=== PATIENT | female | born 1985 | race Caucasian/White ===

== ENCOUNTER → 2017-10-18 07:31 | Outpatient (CLI) | payer MEDICARE, OTHER, SELFPAY ==
[2017-10-18 09:25] LABS: Basophils % 0.5 % (0.1-2.0); Eosinophils # 0.2 K/mm3 (0.0-0.4); Eosinophils % 2.3 % (0.1-12.0); Hematocrit 35.3 % (37.0-47.0); Hemoglobin 10.8 g/dL (12.2-16.2); Lymphocytes # 1.8 K/mm3 (0.7-4.5); Lymphocytes % 19.3 K/mm3 (10-50); Mean Corpuscular HGB Conc 30.6 g/dL (31.8-35.4); Mean Corpuscular Hemoglobin 30.2 pg (27.0-31.2); Mean Corpuscular Volume 98.9 fl (81-99); Mean Platelet Volume 7.5 fl (7.4-10.4); Monocytes # 0.5 K/mm3 (0.1-1.0); Neutrophils # 6.8 K/mm3 (1.8-7.8); Neutrophils % 72.9 % (37.0-80.0); Platelet Count 327 K/mm3 (142-424); Red Blood Count 3.57 M/mm3 (4.20-5.40); Red Cell Distribution Width 13.7 % (11.5-17.5); White Blood Count 9.3 K/mm3 (4.8-10.8)
[2017-10-18 10:30] LABS: Alanine Aminotransferase 28 U/L (12-78); Albumin Level 4.1 gm/dL (3.4-5.0); Albumin/Globulin Ratio 1.3 (1.1-1.8); Alkaline Phosphatase 62 U/L (46-116); Anion Gap 14.1 mEq/L (5-15); Aspartate Amino Transferase 19 U/L (15-37); Bilirubin,Total 0.3 mg/dL (0.2-1.0); Blood Urea Nitrogen 19 mg/dL (7-18); Calcium 9.2 mg/dL (8.5-10.1); Carbon Dioxide 25 mmol/L (21.0-32.0); Chloride 103 mmol/L (98-107); Cholesterol 161 mg/dL (140-200); Creatinine,Serum 1.08 mg/dL (0.55-1.02); Estimated Glomerular Filt Rate 58 ml/min (>60); GFR (African American) > 60 ML/MIN (>60); Globulin 3.1 gm/dl (1.3-3.2); Glucose 85 mg/dL (74-106); Phosphorous 3.4 mg/dL (2.4-4.9); Potassium 4.1 mmoL/L (3.5-5.1); Sodium 138 mmol/L (136-145); Total Protein,Serum 7.2 gm/dL (6.4-8.2); Triglycerides 104 mg/dL (30-200)
[2017-11-19 13:41] LABS: Miscellaneous Test SEE SEP REPORT
[2017-11-19 19:26] LABS: Parathyroid Hormone Intact 72 pg/mL (15-65); Vitamin D 25 Hydroxy 43.5 ng/mL (30.0-100.0)
== END ==
PROVIDERS: PCP Surgery; Visit Provider Surgery
DX: Z94.0 Kidney transplant status (principal); Z79.891 Long term (current) use of opiate analgesic; Z00.00 Encounter for general adult medical examination without abnormal findings
CPT/HCPCS: 36415; 80053; 82465; 82652; 83735; 83970; 84100; 84478; 85025

== ENCOUNTER → 2018-02-02 06:56 | Outpatient (CLI) | payer MEDICARE, OTHER, SELFPAY ==
[2018-02-02 08:37] LABS: Creatinine,Urine Random 136 mg/dL (20-320); Total Protein,Urine Random 67.9 mg/dL (0.0-11.9)
[2018-02-02 09:04] LABS: Basophils % 0.5 % (0.1-2.0); Eosinophils # 0.1 K/mm3 (0.0-0.4); Eosinophils % 1.9 % (0.1-12.0); Hematocrit 33.7 % (37.0-47.0); Hemoglobin 10.6 g/dL (12.2-16.2); Lymphocytes # 1.5 K/mm3 (0.7-4.5); Mean Corpuscular HGB Conc 31.5 g/dL (31.8-35.4); Mean Corpuscular Hemoglobin 30.6 pg (27.0-31.2); Mean Corpuscular Volume 97.2 fl (81-99); Mean Platelet Volume 8.2 fl (7.4-10.4); Monocytes # 0.3 K/mm3 (0.1-1.0); Monocytes % 5.3 % (1.7-9.3); Neutrophils # 4.4 K/mm3 (1.8-7.8); Neutrophils % 69.3 % (37.0-80.0); Platelet Count 269 K/mm3 (142-424); Red Blood Count 3.47 M/mm3 (4.20-5.40); White Blood Count 6.4 K/mm3 (4.8-10.8)
[2018-02-02 09:19] LABS: Alanine Aminotransferase 22 U/L (12-78); Albumin Level 3.8 gm/dL (3.4-5.0); Albumin/Globulin Ratio 1.2 (1.1-1.8); Alkaline Phosphatase 58 U/L (46-116); Anion Gap 13.2 mEq/L (5-15); Aspartate Amino Transferase 19 U/L (15-37); Bilirubin,Total 0.3 mg/dL (0.2-1.0); Blood Urea Nitrogen 15 mg/dL (7-18); Calcium 8.9 mg/dL (8.5-10.1); Carbon Dioxide 26 mmol/L (21.0-32.0); Chloride 105 mmol/L (98-107); Cholesterol 143 mg/dL (140-200); Creatinine,Serum 0.92 mg/dL (0.55-1.02); Estimated Glomerular Filt Rate 70 ml/min (>60); GFR (African American) 85 ML/MIN (>60); Globulin 3.3 gm/dl (1.3-3.2); Glucose 86 mg/dL (74-106); Potassium 4.2 mmoL/L (3.5-5.1); Sodium 140 mmol/L (136-145); Total Protein,Serum 7.1 gm/dL (6.4-8.2); Triglycerides 116 mg/dL (30-200)
[2018-02-07 06:04] LABS: BKV DNA, Quant PCR, Plasma Negative copies/mL (Negative)
== END ==
PROVIDERS: Visit Provider Surgery
DX: Z94.0 Kidney transplant status (principal); Z00.00 Encounter for general adult medical examination without abnormal findings; Z79.891 Long term (current) use of opiate analgesic
CPT/HCPCS: 36415; 80053; 82465; 82570; 84155; 84478; 85025

== ENCOUNTER → 2018-04-14 07:16 | Outpatient (CLI) | payer MEDICARE, OTHER, SELFPAY ==
[2018-04-14 08:45] LABS: Basophils % 0.3 % (0.1-2.0); Eosinophils # 0.2 K/mm3 (0.0-0.4); Eosinophils % 2.5 % (0.1-12.0); Hemoglobin 11.4 g/dL (12.2-16.2); Lymphocytes # 1.8 K/mm3 (0.7-4.5); Lymphocytes % 23.5 K/mm3 (10-50); Mean Corpuscular Hemoglobin 29.2 pg (27.0-31.2); Mean Corpuscular Volume 97.4 fl (81-99); Mean Platelet Volume 7.9 fl (7.4-10.4); Monocytes # 0.5 K/mm3 (0.1-1.0); Monocytes % 6.4 % (1.7-9.3); Neutrophils # 5.1 K/mm3 (1.8-7.8); Neutrophils % 67.3 % (37.0-80.0); Platelet Count 284 K/mm3 (142-424); Red Cell Distribution Width 12.5 % (11.5-17.5); White Blood Count 7.6 K/mm3 (4.8-10.8)
[2018-04-14 10:54] LABS: Alanine Aminotransferase 22 U/L (12-78); Albumin Level 3.8 gm/dL (3.4-5.0); Albumin/Globulin Ratio 1.1 (1.1-1.8); Alkaline Phosphatase 52 U/L (46-116); Anion Gap 17.1 mEq/L (5-15); Aspartate Amino Transferase 19 U/L (15-37); Bilirubin,Total 0.3 mg/dL (0.2-1.0); Blood Urea Nitrogen 17 mg/dL (7-18); Calcium 8.9 mg/dL (8.5-10.1); Carbon Dioxide 23 mmol/L (21.0-32.0); Chloride 105 mmol/L (98-107); Estimated Glomerular Filt Rate 47 ml/min (>60); GFR (African American) 57 ML/MIN (>60); Globulin 3.4 gm/dl (1.3-3.2); Glucose 79 mg/dL (74-106); Potassium 4.1 mmoL/L (3.5-5.1); Sodium 141 mmol/L (136-145); Total Protein,Serum 7.2 gm/dL (6.4-8.2)
[2018-04-19 12:22] LABS: BKV DNA, Quant PCR, Plasma Negative copies/mL (Negative)
== END ==
PROVIDERS: Visit Provider Surgery
DX: Z94.0 Kidney transplant status (principal); Z79.891 Long term (current) use of opiate analgesic
CPT/HCPCS: 36415; 80053; 85025; 87799

== ENCOUNTER → 2018-08-05 06:59 | Outpatient (CLI) | payer MEDICARE, OTHER, SELFPAY ==
[2018-08-05 08:10] LABS: Basophils % 0.4 % (0.1-2.0); Eosinophils # 0.3 K/mm3 (0.0-0.4); Eosinophils % 3.3 % (0.1-12.0); Hematocrit 29.6 % (37.0-47.0); Hemoglobin 9.3 g/dL (12.2-16.2); Lymphocytes # 1.6 K/mm3 (0.7-4.5); Lymphocytes % 20.8 K/mm3 (10-50); Mean Corpuscular HGB Conc 31.2 g/dL (31.8-35.4); Mean Corpuscular Hemoglobin 31.2 pg (27.0-31.2); Mean Platelet Volume 7.1 fl (7.4-10.4); Monocytes # 0.4 K/mm3 (0.1-1.0); Monocytes % 5.4 % (1.7-9.3); Neutrophils # 5.3 K/mm3 (1.8-7.8); Neutrophils % 70.1 % (37.0-80.0); Platelet Count 276 K/mm3 (142-424); Red Blood Count 2.96 M/mm3 (4.20-5.40); Red Cell Distribution Width 13.6 % (11.5-17.5); White Blood Count 7.5 K/mm3 (4.8-10.8)
[2018-08-05 09:23] LABS: Creatinine,Urine Random 127 mg/dL (20-320); Total Protein,Urine Random 38.7 mg/dL (0.0-11.9)
[2018-08-05 09:44] LABS: Alanine Aminotransferase 24 U/L (12-78); Albumin Level 3.6 gm/dL (3.4-5.0); Albumin/Globulin Ratio 1.1 (1.1-1.8); Alkaline Phosphatase 46 U/L (46-116); Anion Gap 15.1 mEq/L (5-15); Aspartate Amino Transferase 17 U/L (15-37); Bilirubin,Total 0.2 mg/dL (0.2-1.0); Blood Urea Nitrogen 12 mg/dL (7-18); Carbon Dioxide 25 mmol/L (21.0-32.0); Chloride 105 mmol/L (98-107); Chol/HDL Ratio 3.6 (1-3.5); Cholesterol 157 mg/dL (140-200); Creatinine,Serum 0.92 mg/dL (0.55-1.02); Estimated Glomerular Filt Rate 69 ml/min (>60); GFR (African American) 84 ML/MIN (>60); Globulin 3.2 gm/dl (1.3-3.2); Glucose 86 mg/dL (74-106); HDL Cholesterol 44 mg/dL (29-89); LDL Cholesterol 99 mg/dL (0-130); Potassium 4.1 mmoL/L (3.5-5.1); Sodium 141 mmol/L (136-145); Total Protein,Serum 6.8 gm/dL (6.4-8.2); Triglycerides 69 mg/dL (30-200); VLDL Cholesterol 14 mg/dL (0-40)
[2018-08-08 15:52] LABS: BKV DNA, Quant PCR, Plasma Negative copies/mL (Negative)
== END ==
PROVIDERS: Visit Provider Surgery
DX: Z94.0 Kidney transplant status (principal); Z79.891 Long term (current) use of opiate analgesic
CPT/HCPCS: 36415; 80053; 80061; 82570; 84155; 85025; 87799

== ENCOUNTER → 2020-07-11 09:43 | Outpatient (CLI) | payer MEDICARE, OTHER, SELFPAY ==
--- NOTE | 2020-07-11 09:44 | US_ITS ---
PROCEDURE: US TRANSVAGINAL CLINICAL INDICATION: US t/v pelvic pain COMPARISON: US PTV US PELVIS-TRANSVAGINAL ONLY from 04/16/2015 FINDINGS: UTERUS: 8cm x 4cmx 3cm with a combined endometrial thickness of 7mm LEFT OVARY: [id number] with a volume of 4.1ml. RIGHT OVARY: [id number] with a volume of 20.9ml. The cervix appears thickened with some increased echogenicity in the endocervical canal. There are small follicles of the left ovary. The right ovary is enlarged with a volume of 20 mL with multiple right ovarian cysts the largest at 16 mm. Blood flow is present in the right ovary. IMPRESSION: 1. Thickened cervix with increased echogenicity of the endocervical canal. Recommend direct visualization. 2. Multiple right ovarian cysts the largest at 16 mm with enlarged right ovary. Dictated by: Nicholas Polanco MD 07/11/2020 18:07 Nicholas Polanco MD in [place] 07/11/2020 18:07
== END ==
PROVIDERS: PCP Family Medicine; Visit Provider Obstetrics & Gynecology
DX: R10.2 Pelvic and perineal pain (principal)
CPT/HCPCS: 76830

== ENCOUNTER 2021-06-02 11:11 | Emergency (ER) | payer MEDICARE, OTHER, SELFPAY ==
[2021-06-02 12:00] VITALS: BP 136/91; PULSE 94; RESP 19; TEMP 37.1; O2SAT 98; BMI 28.6
--- NOTE | 2021-06-02 12:39 | HMH.EDUTC ---
[facility] Disposition Clinical Impression: Sinusitis Qualifiers: Sinusitis location: unspecified location Chronicity: unspecified Qualified Code(s): J32.9 - Chronic sinusitis, unspecified Disposition: Home, Self-Care Condition on Discharge: Good Instructions: Sinusitis, DI for Sinusitis, Amoxicillin and Clavulanic Acid, DI for COVID-19 (Suspected or Confirmed ), Coronavirus Disease 2019, Preventing the Spread of Coronavirus Discharge Instructions Additional Instructions: *Monitor Temp, Over the counter Motrin or Tylenol as directed/as needed Tylenol every 4 hours and Motrin every 6 hours (as long as your family doctor has told you that you can take it) for fever or pain. and straight to ER if unable to lower temp less than 101.0 after medication given *Warm salt water gargles may help to soothe the throat *Throat Lozenges *Warm fluids like tea with honey may help to soothe the throat *Sleep elevated *Humidifier/Vaporizer *Start Augmentin Continue other medications Follow up IMMEDIATELY for new or worsening symptoms or no Noticeable improvement over the next 48-72 hours. 911 for difficulty breathing or swallowing You were tested for today for COVID19 your test result should be back in the next 24-48 hours, you may call to the [facility] to see if your test results are back in the next 48 hours [phone] [facility] hours are 9am-9pm You was given a handout with instructions for Self Quarantine and Self isolation for while you wait on test results and what to do if they are positive If you are positive the Health Dept will be contacting you also Make sure to take your Vitamins Vit. C Vit D and Zinc if you can take them Prescriptions: Amoxicillin/Potassium Clav [Augmentin 875-125 Tablet] 1 tab PO Q12H 7 Days #14 tab Transmission Status: Pending to [facility] #[id number] Referrals: Denisha Rojas MD [Primary Care Provider] - As needed Time of Disposition: 12:48 Medical Decision Making - Foster Inquiry Pt receiving controlled substance: No Foster was queried for this patient: No Vital Signs: 06/02/21 12:00 Temperature 98.8 F Temperature Source Oral Pulse Rate [Right Brachial] 94 H Respiratory Rate 19 Blood Pressure [Right Arm] 136/91 H Blood Pressure Mean [Right Arm] 106 Blood Pressure Source [Right Arm] Automatic Cuff Blood Pressure Position [Right Arm] Sitting 02 Sat by Pulse Oximetry 98 Oxygen Delivery Method Room Air Orders (Tests/Meds): ORDERS Category Date Time Status Covid-19 Nasal PCR ([facility]) Routine Lab 06/02/21 12:20 Received Medical Decision Narrative: Medications discussed with pharmacy due to history and current medications and agreed Augmentin 875/125 for sinus infection [facility] HPI - General Stated complaint: sob nausea runny nose headache Time Seen by Provider: 06/02/21 12:39 Mode of Arrival: Ambulatory Source of Information: Patient Limitations: No Limitations Description of Symptoms (Recalled from Triage Doc. by RN): PATIENT C/O POSSIBLE SINUS INFECTION, FATIGUE, AND SORE THROAT X 3 DAYS HEENT Symptoms (Recalled from RN notes): Yes Resp Symptoms (Recalled from RN notes): No Skin Symptoms (Recalled from RN notes): No MS Symptoms (Recalled from RN notes): No Functional Status (Recalled from RN notes): WNL - History of Present Illness Provider Complaint: Patient states that she thinks she has a sinus infection States that he has been having sinus pain and pressure along with yellowish green mucous State that she feels like she is having drainage in the back of her throat, scratchy throat and feeling tired State that she read that this is also COVID symptoms so she came in to get checked and tested for COVID due to her past history of bilateral lung transplants - Related Data Home Medications Medication Instructions Recorded Confirmed acyclovir 400 mg tablet 400 mg PO tab 04/15/21 04/15/21 ascorbate calcium (vitamin C) 500 500 mg PO DAILY 04/15/21 04/15/21 mg tablet ator
[2021-06-02 13:05] VITALS: BP 136/91; PULSE 94; RESP 19; TEMP 37.1; O2SAT 98
--- NOTE | 2021-06-02 21:51 | PC.NURSE ---
PT NOTIFIED OF POSITIVE COVID TEST RESULT
== END 2021-06-02 13:08 | disposition home or self-care (01) ==
PROVIDERS: Emergency Provider Nurse Practitioner; PCP Family Medicine
DX: U07.1 COVID-19 (principal); J32.9 Chronic sinusitis, unspecified
CPT/HCPCS: G0463; 99202; U0003

== ENCOUNTER 2021-08-10 06:17 | Emergency (ER) | payer MEDICARE, OTHER, SELFPAY ==
[2021-08-10] VITALS (8 sets, daily range): BP systolic 104–152; BP diastolic 71–96; PULSE 82–102; RESP 15–18; TEMP 36.6; O2SAT 94–98; BMI 27.4
--- NOTE | 2021-08-10 06:33 | XR_ITS ---
PROCEDURE INFORMATION: Exam: XR Chest Exam date and time: 08/10/2021 6:33 AM Age: 36 years old Clinical indication: Shortness of breath; Prior surgery; Surgery date: 6+ months; Surgery type: Heart and double lung transplant, masectomy; Patient HX: Sore throat, SOA; Additional info: Shortness of air TECHNIQUE: Imaging protocol: XR of the chest. Views: 2 views. COMPARISON: No relevant prior studies available. FINDINGS: Tubes, catheters and devices: Bones are demineralized with a severe scoliosis of the thoracolumbar spine status post fusion utilizing cerclage wires, Riley rods and laminar hooks. Lungs: Mild perihilar basilar infiltrates. Pleural spaces: No pleural effusion or pneumothorax. Heart/Mediastinum: Moderate cardiomegaly and mediastinal widening. Bones/joints: Several remote bilateral rib fractures incidentally noted. Gastrointestinal tract: Prominent air-filled bowel loops in the upper abdomen which may be an ileus. Prominent air-filled collection within the right upper quadrant which may be the stomach shifted to the right. Clinical correlation advised. IMPRESSION: As detailed above.
[2021-08-10 06:41] LABS: Coronavirus 19, PCR Not Detected (NotDetected); Influenza A, PCR Not Detected (NotDetected); Influenza B, PCR Not Detected (NotDetected)
[2021-08-10 06:50] LABS: Strep Scrn Group A (Rapid) Negative (Negative)
--- NOTE | 2021-08-10 06:57 | HMH.EDGENADL ---
ED Disposition Clinical Impression: Community acquired pneumonia Qualifiers: Laterality: right Lung location: lower lobe of lung Qualified Code(s): J18.9 - Pneumonia, unspecified organism Disposition: Still a Patient Condition on Discharge: Good Referrals: Denisha Rojas MD [Primary Care Provider] - - Critical Care Critical Care Time: No Attestation: On 08/10/21, the high probability of a clinically significant, sudden or life threatening deterioration of the following system(s) required my full and direct attention, intervention and personal management. The time I documented below is in addition to time spent performing reported procedures but includes the following listed in this critical care notation. Medical Decision Making - Medical Records Medical records reviewed: Yes: I reviewed the patient's medical records. - Foster Inquiry Pt receiving controlled substance: No Vital Signs: 08/10/21 06:27 Temperature 97.9 F Temperature Source Oral Pulse Rate [Right Brachial] 82 Respiratory Rate 15 Blood Pressure [Right Arm] 130/96 H Blood Pressure Mean [Right Arm] 107 Blood Pressure Source [Right Arm] Automatic Cuff Blood Pressure Position [Right Arm] Sitting 02 Sat by Pulse Oximetry 94 L Oxygen Delivery Method Room Air - Lab Data Lab Results 08/10/21 06:30: Group A Strep Rapid Negative 08/10/21 06:30: SARS-CoV-2 (PCR) Not detected, Influenza A Untype (PCR) Not detected, Influenza Type B (PCR) Not detected 08/10/21 07:35: WBC 11.8 H, RBC 3.64 L, Hgb 11.9 L, Hct 38.3, MCV 105.2 H, MCH 32.7 H, MCHC 31.1 L, RDW 14.7, Plt Count 232, MPV 8.1, Neut % (Auto) 86.9 H, Lymph % (Auto) 7.2 L, Medina % (Auto) 4.2, Eos % (Auto) 1.5, Baso % (Auto) 0.2, Neut # (Auto) 10.3 H, Lymph # (Auto) 0.9, Medina # (Auto) 0.5, Eos # (Auto) 0.2, Baso # (Auto) 0.0 08/10/21 07:35: Sodium 140, Potassium 4.0, Chloride 102, Carbon Dioxide 28, Anion Gap 14.0, BUN 13, Creatinine 0.80, Estimated Creat Clear 109, Estimated GFR 80, Est GFR ( Amer) 97, Glucose 101 H, Calcium 10.5 H, Total Bilirubin 0.5, AST 28, ALT 11 L, Alkaline Phosphatase 44, Total Protein 7.2, Albumin 4.4, Globulin 2.8, Albumin/Globulin Ratio 1.6 Result diagrams: 08/10/21 07:35 08/10/21 07:35 Orders (Tests/Meds): ED MEDICATIONS Generic Name Dose Route Start Last Admin Trade Name Freq PRN Reason Stop Dose Admin Ceftriaxone Sodium 2 gm/ 100 mls @ 200 mls/hr 08/10/21 07:45 08/10/21 08:03 Sodium Chloride IV 08/24/21 07:44 200 mls/hr Q24H DEEPAK Administration ORDERS Category Date Time Status CT soft tissue neck w con Stat Cat Scan 08/10/21 07:28 Ordered Complete Blood Count Auto Diff Stat Lab 08/10/21 07:35 Results Blood Culture Stat Micro 08/10/21 07:35 Received Strep Screen Confirmation Stat Micro 08/10/21 06:30 Received Medical Decision Narrative: Patient is a 36-year-old female presents the ED today for further evaluation of sore throat started approximately 24 hours ago. Patient is well-appearing on initial evaluation in no acute distress and vital signs are stable. Differential diagnosis includes sinusitis, viral infection, strep throat, posterior tonsillar abscess. Will further evaluate with strep swab, and chest x-ray for shortness of breath, Covid swab, CBC, CMP, CT neck with IV contrast. Given patient's lung sounds on examination, and productive green sputum and cough, and treat immunosuppression will start 2 g of IV Rocephin here while work-up is ongoing. General Adult HPI - General Chief complaint: Shortness of Breath/Dyspnea Stated complaint: sore throat,SOA Time Seen by Provider: 08/10/21 06:57 Mode of Arrival: Family Vehicle Limitations: No Limitations Description of Symptoms (Recalled from ER Triage Doc. by RN): pt presents with complaints of sore throat, SOA and excessive drainage down the back of her throat for a couple of days. history of kidney transplant, right mastectomy and seizures as comorbidities. pt denies
[2021-08-10 07:58] LABS: Basophils % 0.2 % (0.1-2.0); Eosinophils # 0.2 K/mm3 (0.0-0.4); Eosinophils % 1.5 % (0.1-12.0); Hematocrit 38.3 % (37.0-47.0); Hemoglobin 11.9 g/dL (12.2-16.2); Lymphocytes # 0.9 K/mm3 (0.7-4.5); Lymphocytes % 7.2 % (10-50); Mean Corpuscular HGB Conc 31.1 g/dL (31.8-35.4); Mean Corpuscular Hemoglobin 32.7 pg (27.0-31.2); Mean Corpuscular Volume 105.2 fl (81-99); Mean Platelet Volume 8.1 fl (7.4-10.4); Monocytes # 0.5 K/mm3 (0.1-1.0); Monocytes % 4.2 % (1.7-9.3); Neutrophils # 10.3 K/mm3 (1.8-7.8); Neutrophils % 86.9 % (37.0-80.0); Platelet Count 232 K/mm3 (142-424); Red Blood Count 3.64 M/mm3 (4.20-5.40); Red Cell Distribution Width 14.7 % (11.5-17.5); White Blood Count 11.8 K/mm3 (4.8-10.8)
[2021-08-10 07:59] LABS: Chloride 102 mmol/L (98-107); MANUAL DIFFERENTIAL MANUAL DIFFERENTIAL (MANUAL DIFF); Sodium 140 mmol/L (136-145)
[2021-08-10 08:01] LABS: Alanine Aminotransferase 11 U/L (12-78); Alkaline Phosphatase 44 U/L (38-126); Aspartate Amino Transferase 28 U/L (14-36); Bilirubin,Total 0.5 mg/dl (0.2-1.3); Blood Urea Nitrogen 13 mg/dl (7-17); Creatinine Clearance Estimated 109 mL/min (50-200); Estimated Glomerular Filt Rate 80 ml/min (>60); GFR (African American) 97 ML/MIN (>60)
[2021-08-10 08:02] LABS: Albumin Level 4.4 g/dl (3.5-5.0); Albumin/Globulin Ratio 1.6 (1.1-1.8); Calcium 10.5 mg/dl (8.4-10.2); Carbon Dioxide 28 mmol/L (22.0-30.0); Globulin 2.8 g/dL (1.3-3.2); Glucose 101 mg/dl (74-100); Total Protein,Serum 7.2 g/dl (6.3-8.2)
[2021-08-10 08:26] LABS: Hypochromasia 1+; Lymphocytes % 9 % (10-50); Macrocytosis 2+; Monocytes % 3 % (2-9); Neutrophils % 88 % (42-76); Platelet Estimate Normal; Total Cells Counted 100
--- NOTE | 2021-08-10 09:02 | CT_ITS ---
PROCEDURE: CT SOFT TISSUE NECK WO CON CLINICAL HISTORY: throat pain, hoarseness COMPARISON: No exams were available for comparison TECHNIQUE: Oral Contrast: None IV Contrast: None Axial images obtained with sagittal and coronal reformats. All CT scans at the facility use one or more dose reduction, viz: automated exposure control, ma/kV adjustment per patient size (including targeted exams where dose is matched to indication, i.e. head), or iterative reconstruction technique. FINDINGS: There is no evidence of retro pharyngeal fluid or prevertebral effusions. There are no definite davis pharyngeal lesions identified. The airway is patent. There is a healed sternotomy and mediastinal clips. Thyroid gland appears unremarkable. Evaluation of the vasculature is limited due to lack of intravenous contrast. There is no lymphadenopathy. There is artifact from dental hardware. The visualized sinuses are clear. Orbits are unremarkable. The right cerebral ventricle is enlarged however is incompletely visualized-correlation with prior CT images is recommended. There is mild cerebral atrophy. Visualized extent of lung apices appear unremarkable. There is mild cervical spondylosis. IMPRESSION: 1. No oral pharyngeal or retropharyngeal lesions identified. 2. Enlarged right cerebral ventricle - correlation with prior CT imaging of the head and clinical history is recommended. Dictated by: Pauline Gann 08/10/2021 10:04 Pauline Gann in [place] 08/10/2021 10:04
== END 2021-08-10 12:24 | disposition still patient (30) ==
PROVIDERS: Emergency Provider Student in an Organized Health Care Education/Training Program; PCP Family Medicine
DX: J18.9 Pneumonia, unspecified organism (principal); Z20.822 Contact with and (suspected) exposure to COVID-19; Q89.3 Situs inversus; Z85.3 Personal history of malignant neoplasm of breast; Z94.3 Heart and lungs transplant status; Z79.899 Other long term (current) drug therapy
CPT/HCPCS: 70490; 71046; 80053; 85007; 85025; 87040; 87430; 96365; 99284; C9803; U0003; U0005

== ENCOUNTER → 2021-11-11 08:36 | Outpatient (CLI) | payer MEDICARE, OTHER, SELFPAY | PROVIDERS: PCP Family Medicine; Visit Provider Nurse Practitioner | DX: Z20.822 Contact with and (suspected) exposure to COVID-19 (principal) | CPT/HCPCS: C9803; U0003; U0005 ==

== ENCOUNTER 2021-12-24 11:10 | Emergency (ER) | payer MEDICARE, OTHER, SELFPAY ==
--- NOTE | 2021-12-24 11:09 | ECG_ITS ---
APPROVED REPORT Exam: Resting ECG HR:117 bpm ECG Measurements Heart Rate 117 AXES IL 164 P 50 QRSd 104 QRS 76 QT 320 T 20 QTc 390 Conclusion SINUS TACHYCARDIA ABNORMAL RHYTHM ECG UNCONFIRMED REPORT Electronically signed by : Madhav Palencia MD 12/25/2021 15:03:52
[2021-12-24 11:11] VITALS: BP 132/96; PULSE 120; RESP 22; TEMP 36.7; O2SAT 98; BMI 27.4
--- NOTE | 2021-12-24 11:17 | PC.NURSE ---
ED MD at bedside
--- NOTE | 2021-12-24 11:20 | XR_ITS ---
FINAL REPORT TECHNIQUE: Single view chest CLINICAL HISTORY: cough COMPARISON: 07/21/2021 FINDINGS: A single view of the chest was obtained. There is severe levoscoliosis with rotation of the patient which makes evaluation difficult. There are bilateral pulmonary opacities which may represent pneumonia or atelectasis. There is no pneumothorax. IMPRESSION: Limited evaluation secondary to severe levoscoliosis and patient rotation. Bilateral pulmonary opacities which may represent pneumonia or atelectasis. Reviewed, Interpreted and Dictated by Vladimir Alfredo III, MD Transcribed by Ivory Jenkins Authenticated by Vladimir Alfredo III, MD on 12/24/2021 12:31:27 PM [facility]
[2021-12-24 11:37] LABS: Chloride 104 mmol/L (98-107); Potassium 5.4 mmoL/L (3.5-5.1); Sodium 135 mmol/L (136-145)
--- NOTE | 2021-12-24 11:37 | HMH.EDCP ---
ED Disposition Clinical Impression: Atypical pneumonia Disposition: Home, Self-Care Condition on Discharge: Good Instructions: DI for Pneumonia -- Adult Prescriptions: Doxycycline Monohydrate [Doxycycline Banner 100mg Tab] 100 mg PO Q12 #20 tab Transmission Status: Pending to [facility] #[id number] Referrals: Denisha Rojas MD [Primary Care Provider] - - Critical Care Critical Care Time: No Attestation: On 12/24/21, the high probability of a clinically significant, sudden or life threatening deterioration of the following system(s) required my full and direct attention, intervention and personal management. The time I documented below is in addition to time spent performing reported procedures but includes the following listed in this critical care notation. Medical Decision Making - Medical Records Medical records reviewed: Yes: I reviewed the patient's medical records. - Foster Inquiry Pt receiving controlled substance: No Vital Signs: 12/24/21 11:11 12/24/21 13:28 Temperature 98.1 F Temperature Source Oral Pulse Rate 98 H Pulse Rate [Radial] 120 H Respiratory Rate 22 26 H Blood Pressure 118/89 Blood Pressure [Right Arm] 132/96 H Blood Pressure Mean 95 Blood Pressure Mean [Right Arm] 108 Blood Pressure Position [Right Arm] Sitting 02 Sat by Pulse Oximetry 98 96 Oxygen Delivery Method Room Air - Lab Data Lab Results 12/24/21 11:15: Sodium 135 L, Potassium 5.4 H, Chloride 104, Carbon Dioxide 24, Anion Gap 12.4, BUN 17, Creatinine 1.10 H, Estimated Creat Clear 79, Estimated GFR 56 L, Est GFR ( Amer) 67, Glucose 93, Calcium 8.4, Total Bilirubin 0.8, AST 39 H, ALT 17, Alkaline Phosphatase 40, Troponin I < 0.01, Total Protein 6.6, Albumin 3.9, Globulin 2.7, Albumin/Globulin Ratio 1.4 12/24/21 11:15: NT-Pro-B Natriuret Pep 193 H 12/24/21 11:21: Specimen Source L. radial, O2 % ra, ABG pH 7.40, ABG pCO2 42.7, ABG pO2 72.4 L, ABG HCO3 25.7, ABG Total CO2 27.0, ABG O2 Saturation 94, ABG Base Excess 0.9, Nicholas Test acceptable 12/24/21 11:38: WBC 5.4, RBC 3.39 L, Hgb 11.2 L, Hct 35.3 L, MCV 103.9 H, MCH 33.1 H, MCHC 31.9, RDW 13.8, Plt Count 374, MPV 7.8, Neut % (Auto) 69.3, Lymph % (Auto) 19.9, Banner % (Auto) 7.1, Eos % (Auto) 3.2, Baso % (Auto) 0.6, Neut # (Auto) 3.8, Lymph # (Auto) 1.1, Banner # (Auto) 0.4, Eos # (Auto) 0.2, Baso # (Auto) 0.0 12/24/21 11:38: Potassium 4.6 12/24/21 12:20: PT 10.9, INR 0.96, APTT 21.2 L Result diagrams: 12/24/21 11:38 12/24/21 11:38 Orders (Tests/Meds): ORDERS Category Date Time Status Full Resp Panel w/COVID ([facility]) Routine Lab 12/24/21 13:35 Ordered Rapid PCR Covid and Flu A/B Stat Lab 12/24/21 11:21 Ordered Troponin I Q3H Lab 12/24/21 14:30 Ordered Troponin I Q3H Lab 12/24/21 17:30 Ordered - Radiology Data #1 Image(s): Chest Image Reviewed: Yes I reviewed the patient's radiology results, Yes I reviewed the patient's radiology image, Yes I have reviewed radiologist's interpretation IMPRESSION: Limited evaluation secondary to severe levoscoliosis and patient rotation. Bilateral pulmonary opacities which may represent pneumonia or atelectasis. - ECG Data Tracing #1 I reviewed this ECG and interpreted as documented below: Tachycardic rate of 117 bpm, NV interval 164 ms, normal QTC. Sinus tachycardia with nonspecific changes. ECG initial impression date: 12/24/21 ECG initial impression time: 11:09 - Reevaluation(s) Time: 13:41 Reevaluation #1: On reevaluation, the patient is feeling much better. Hemodynamics have improved. The she is maintaining saturations on room air. There is no evidence of respiratory distress. Patient's chest x-ray is concerning for some atelectasis versus pneumonia. There is always concern for pulmonary embolism given the patient's extensive history of cancer transplant. However given her kidney transplant she is not an appropriate candidate for CT angiogram at this time. Patient i
[2021-12-24 11:39] LABS: Alanine Aminotransferase 17 U/L (12-78); Aspartate Amino Transferase 39 U/L (14-36); Blood Urea Nitrogen 17 mg/dl (7-17); Creatinine Clearance Estimated 79 mL/min (50-200); Estimated Glomerular Filt Rate 56 ml/min (>60); GFR (African American) 67 ML/MIN (>60)
[2021-12-24 11:40] LABS: Albumin Level 3.9 g/dl (3.5-5.0); Albumin/Globulin Ratio 1.4 (1.1-1.8); Alkaline Phosphatase 40 U/L (38-126); Anion Gap 12.4 mEq/L (5-15); Bilirubin,Total 0.8 mg/dl (0.2-1.3); Calcium 8.4 mg/dl (8.4-10.2); Carbon Dioxide 24 mmol/L (22.0-30.0); Globulin 2.7 g/dL (1.3-3.2); Glucose 93 mg/dl (74-100); Total Protein,Serum 6.6 g/dl (6.3-8.2)
[2021-12-24 11:47] LABS: Basophils % 0.6 % (0.1-2.0); Eosinophils # 0.2 K/mm3 (0.0-0.4); Eosinophils % 3.2 % (0.1-12.0); Hematocrit 35.3 % (37.0-47.0); Hemoglobin 11.2 g/dL (12.2-16.2); Lymphocytes # 1.1 K/mm3 (0.7-4.5); Lymphocytes % 19.9 % (10-50); Mean Corpuscular HGB Conc 31.9 g/dL (31.8-35.4); Mean Corpuscular Hemoglobin 33.1 pg (27.0-31.2); Mean Corpuscular Volume 103.9 fl (81-99); Mean Platelet Volume 7.8 fl (7.4-10.4); Monocytes # 0.4 K/mm3 (0.1-1.0); Monocytes % 7.1 % (1.7-9.3); Neutrophils # 3.8 K/mm3 (1.8-7.8); Neutrophils % 69.3 % (37.0-80.0); Platelet Count 374 K/mm3 (142-424); Red Blood Count 3.39 M/mm3 (4.20-5.40); Red Cell Distribution Width 13.8 % (11.5-17.5); White Blood Count 5.4 K/mm3 (4.8-10.8)
[2021-12-24 11:50] LABS: NT Pro Brain Natriuretic Pep. 193 pg/mL (0-125)
[2021-12-24 11:59] LABS: ABG Base Excess 0.9 mmol/L (-2.4-2.3); ABG HCO3 25.7 mmhg (22.0-26.0); ABG Oxygen Saturation 94 % (90-100); ABG PCO2 42.7 mmhg (35.0-45.0); ABG PO2 72.4 mmhg (80-100)
--- NOTE | 2021-12-24 12:00 | PC.NURSE ---
pt resting offers no c/o at present
[2021-12-24 12:02] LABS: Allen's Test acceptable; Oxygen ra %; Source L. Radial
[2021-12-24 12:07] LABS: Troponin I < 0.01 ng/ml (0.00-0.034)
[2021-12-24 12:36] LABS: Potassium 4.6 mmoL/L (3.5-5.1)
[2021-12-24 13:03] LABS: Activated Partial Thrombo Time 21.2 seconds (22.8-30.6); INR 0.96 (0.9-1.1); Prothrombin Time 10.9 seconds (10.1-12.5)
--- NOTE | 2021-12-24 13:22 | PC.NURSE ---
lung translpant team called to speak with patients NurseBelgica RN
--- NOTE | 2021-12-24 13:22 | PC.NURSE ---
Kylah with [facility] called to get pt update
[2021-12-24 13:28] VITALS: BP 118/89; PULSE 98; RESP 26; O2SAT 96
--- NOTE | 2021-12-24 13:34 | PC.NURSE ---
ESEQUIEL MD on phone with patients [facility] lung transplant team
[2021-12-24 13:41] LABS: Adenovirus,PCR Not Detected (NotDetected); Bordetella Pertussis Not Detected (NotDetected); Chlamydophila Pneumoniae, PCR Not Detected (NotDetected); Coronavirus 19, PCR Not Detected (NotDetected); Coronavirus 229E Not Detected (NotDetected); Coronavirus NL63 Not Detected (NotDetected); Coronavirus OC43 Not Detected (NotDetected); Coronovirus HKU1,PCR Not Detected (NotDetected); Human Metapneumovirus Not Detected (NotDetected); Influenza A, PCR Not Detected (NotDetected); Influenza AH1, 2009 Not Detected (NotDetected); Influenza AH1, PCR Not Detected (NotDetected); Influenza AH3,PCR Not Detected (NotDetected); Influenza B, PCR Not Detected (NotDetected); Mycoplasma Pneumoniae, PCR Not Detected (NotDetected); Parainfluenza 1, PCR Not Detected (NotDetected); Parainfluenza 2, PCR Not Detected (NotDetected); Parainfluenza 3, PCR Not Detected (NotDetected); Parainfluenza 4, PCR Not Detected (NotDetected); Respiratory Syncytial Virus Not Detected (NotDetected); Rhinovirus/Enterovirus Not Detected (NotDetected)
[2021-12-24 14:07] VITALS: BP 132/90; PULSE 92; RESP 18; TEMP 36.7; O2SAT 93
== END 2021-12-24 14:08 | disposition home or self-care (01) ==
PROVIDERS: Emergency Provider Emergency Medicine; PCP Family Medicine
DX: J18.9 Pneumonia, unspecified organism (principal); R00.0 Tachycardia, unspecified; C80.1 Malignant (primary) neoplasm, unspecified; Z20.822 Contact with and (suspected) exposure to COVID-19; Z79.51 Long term (current) use of inhaled steroids; Z79.899 Other long term (current) drug therapy; Z88.1 Allergy status to other antibiotic agents; Z88.3 Allergy status to other anti-infective agents; Z88.8 Allergy status to other drugs, medicaments and biological substances; Z91.018 Allergy to other foods; Z94.0 Kidney transplant status; Z94.2 Lung transplant status; Z85.3 Personal history of malignant neoplasm of breast; Z82.49 Family history of ischemic heart disease and other diseases of the circulatory system; Z80.9 Family history of malignant neoplasm, unspecified; Z83.3 Family history of diabetes mellitus; Z84.1 Family history of disorders of kidney and ureter; Z83.49 Family history of other endocrine, nutritional and metabolic diseases; Z81.1 Family history of alcohol abuse and dependence
CPT/HCPCS: 71045; 80053; 82803; 83880; 84132; 84484; 85025; 85610; 85730; 87581; 87632; 87798; 93005; 99285; C9803; U0003; U0005

== ENCOUNTER 2022-08-30 10:13 | Emergency (ER) | payer MEDICARE, OTHER, SELFPAY ==
[2022-08-30] VITALS (16 sets, daily range): BP systolic 118–153; BP diastolic 72–104; PULSE 94–112; RESP 18–23; TEMP 36.6–36.9; O2SAT 95–100; BMI 23.0
--- NOTE | 2022-08-30 10:10 | ECG_ITS ---
APPROVED REPORT Exam: Resting ECG HR:113 bpm ECG Measurements Heart Rate 113 AXES IA 154 P 29 QRSd 103 QRS 60 QT 325 T 46 QTc 392 Conclusion SINUS TACHYCARDIA ABNORMAL RHYTHM ECG UNCONFIRMED REPORT Electronically signed by : Madhav Palencia MD 08/30/2022 21:10:20
--- NOTE | 2022-08-30 10:30 | XR_ITS ---
FINAL REPORT TECHNIQUE: Single view chest CLINICAL HISTORY: SOA COMPARISON: 12/24/2021 FINDINGS: A single view of the chest was obtained. Patient is status post median sternotomy. There is thoracic scoliosis convex to the left. Posterior fusion hardware is seen throughout the lower thoracic and upper lumbar spine. The heart and mediastinum are within normal limits. The lungs are underinflated with coarse interstitial opacities, favor chronic. There is no pneumothorax. Osseous structures are unremarkable. IMPRESSION: No acute cardiopulmonary process. Reviewed, Interpreted and Dictated by Swapnil Henao MD Transcribed by Ivory Jenkins Authenticated and [facility]
--- NOTE | 2022-08-30 10:51 | HMH.EDGENADL ---
Discharge Plan Disposition Patient Disposition: Xfer Other Condition: Fair Prescriptions Prescriptions: No Action lamotrigine 25 mg tablet 25 mg PO azathioprine 50 mg tablet 50 mg PO Label Comments: TAKE 1 TABLET BY MOUTH DAILY tacrolimus 1 mg capsule 1 mg PO Label Comments: TAKE 2 CAPSULES BY MOUTH EVERY MORNING AND 1 CAPSULE IN EVENING clonazepam 0.5 mg tablet 0.5 mg PO Label Comments: TAKE 1 TABLET BY MOUTH AT BEDTIME fluconazole 150 mg tablet 150 mg PO Label Comments: TAKE 1 TABLET BY MOUTH EVERY 7 DAYS levetiracetam 1,000 mg tablet 1,000 mg PO levetiracetam 250 mg tablet 250 mg PO metoprolol tartrate 25 mg tablet 25 mg PO Label Comments: TAKE 1 TABLET BY MOUTH TWICE DAILY omeprazole 20 mg capsule,delayed release(DR/EC) 20 mg PO Label Comments: TAKE ONE CAPSULE BY MOUTH TWICE DAILY atorvastatin 20 mg tablet 20 mg PO Label Comments: TAKE 1 TABLET BY MOUTH EVERY DAY acyclovir 400 mg tablet 400 mg PO Label Comments: TAKE 1 TABLET BY MOUTH TWICE DAILY multivitamin [Daily Multi-Vitamin] Tablet 1 tab PO DAILY levofloxacin 750 mg tablet 750 mg PO Label Comments: TAKE 1 TABLET BY MOUTH EVERY DAY ascorbate calcium (vitamin C) 500 mg tablet 500 mg PO DAILY biotin 10 mg tablet 20 mg PO DAILY sulfamethoxazole-trimethoprim 400-80 mg tablet 1 tab PO DAILY azithromycin 250 mg tablet 250 mg PO DAILY doxycycline monohydrate 100 MG tablet 100 mg PO Q12 Qty: 20 0RF amoxicillin-pot clavulanate 1 EACH tablet 1 tab PO Q12H 7 Days Qty: 14 0RF Referrals Follow up/Referrals: Denisha Rojas MD [Primary Care Provider] - See instructions Stand Alone Forms Stand Alone Forms: Transfer Record - ED Discharge ED Provider: Jamal Harris General Adult HPI General Chief complaint: Shortness of Breath/Dyspnea Stated complaint: chest pain Time Seen by Provider: 08/30/22 12:21 Mode of Arrival: Ambulatory Source of Information: Patient Limitations: No Limitations Description of Symptoms (Recalled from ER Triage Doc. by RN): pt to ed c/o chest pressure and increased shortness of breath. pt reports she has been feeling heavy in the chest x3 days. pt denies pain. pt denies chest pain. History of Present Illness HPI narrative: Patient presents with a 2-day history of chest heaviness and tightness accompanied by shortness of air. She describes symptoms as mild to moderate and worse with walking. She denies fever or productive cough. She has multiple organ transplant patient having undergone previous heart and lung transplant. Is also had previous kidney transplant. Related Data Home Medications Medication Instructions Recorded Confirmed acyclovir 400 mg tablet 400 mg PO 04/15/21 04/15/21 ascorbate calcium (vitamin C) 500 500 mg PO DAILY 04/15/21 04/15/21 mg tablet atorvastatin 20 mg tablet 20 mg PO 04/15/21 04/15/21 azathioprine 50 mg tablet 50 mg PO 04/15/21 04/15/21 biotin 10 mg tablet 20 mg PO DAILY 04/15/21 04/15/21 clonazepam 0.5 mg tablet 0.5 mg PO 04/15/21 04/15/21 fluconazole 150 mg tablet 150 mg PO 04/15/21 04/15/21 lamotrigine 25 mg tablet 25 mg PO 04/15/21 04/15/21 levetiracetam 1,000 mg tablet 1,000 mg PO 04/15/21 04/15/21 levetiracetam 250 mg tablet 250 mg PO 04/15/21 04/15/21 levofloxacin 750 mg tablet 750 mg PO 04/15/21 04/15/21 metoprolol tartrate 25 mg tablet 25 mg PO 04/15/21 04/15/21 multivitamin (Daily Multi-Vitamin 1 tab PO DAILY 04/15/21 04/15/21 tablet) omeprazole 20 mg capsule,delayed 20 mg PO 04/15/21 04/15/21 release tacrolimus 1 mg capsule, 1 mg PO 04/15/21 04/15/21 immediate-release azithromycin 250 mg tablet 250 mg PO DAILY 05/22/21 sulfamethoxazole 400 1 tab PO DAILY 05/22/21 mg-trimethoprim 80 mg tablet Previous Rx's Medication Instructions Recorded amoxicillin 875 mg-potassium
--- NOTE | 2022-08-30 10:53 | PC.NURSE ---
placed call to Kylah with transplant team , dr Harris speaking with her now
--- NOTE | 2022-08-30 10:58 | PC.NURSE ---
spoke with transplant team who states they want her transferred to their care.
[2022-08-30 11:01] LABS: Basophils # 0.1 K/mm3 (0-0.2); Basophils % 0.9 % (0.1-2.0); Eosinophils # 0.2 K/mm3 (0.0-0.4); Eosinophils % 1.7 % (0.1-12.0); Hematocrit 37.2 % (37.0-47.0); Hemoglobin 11.6 g/dL (12.2-16.2); Lymphocytes # 0.9 K/mm3 (0.7-4.5); Lymphocytes % 8.9 % (10-50); Mean Corpuscular HGB Conc 31.1 g/dL (31.8-35.4); Mean Corpuscular Hemoglobin 33.7 pg (27.0-31.2); Mean Corpuscular Volume 108.2 fl (81-99); Mean Platelet Volume 8.4 fl (7.4-10.4); Monocytes # 0.7 K/mm3 (0.1-1.0); Monocytes % 6.8 % (1.7-9.3); Neutrophils # 8.7 K/mm3 (1.8-7.8); Neutrophils % 81.7 % (37.0-80.0); Platelet Count 274 K/mm3 (142-424); Red Blood Count 3.43 M/mm3 (4.20-5.40); Red Cell Distribution Width 17.3 % (11.5-17.5); White Blood Count 10.6 K/mm3 (4.8-10.8)
--- NOTE | 2022-08-30 11:01 | PC.NURSE ---
placed call to [facility] for transfer
[2022-08-30 11:02] LABS: Alanine Aminotransferase 37 U/L (12-78); Albumin Level 4.2 g/dl (3.5-5.0); Albumin/Globulin Ratio 1.6 (1.1-1.8); Alkaline Phosphatase 61 U/L (38-126); Anion Gap 11.2 mEq/L (5-15); Aspartate Amino Transferase 45 U/L (14-36); Bilirubin,Total 0.4 mg/dl (0.2-1.3); Blood Urea Nitrogen 24 mg/dl (7-17); Calcium 9.4 mg/dl (8.4-10.2); Carbon Dioxide 39 mmol/L (22.0-30.0); Chloride 95 mmol/L (98-107); Creatinine Clearance Estimated 81 mL/min (50-200); Estimated Glomerular Filt Rate 70 ml/min (>60); GFR (African American) 84 ML/MIN (>60); Globulin 2.7 g/dL (1.3-3.2); Glucose 101 mg/dl (74-100); Potassium 4.2 mmoL/L (3.5-5.1); Sodium 141 mmol/L (136-145); Total Protein,Serum 6.9 g/dl (6.3-8.2)
--- NOTE | 2022-08-30 11:05 | PC.NURSE ---
Dr Harris speaking with the nurse at the transfer center
[2022-08-30 11:15] LABS: NT Pro Brain Natriuretic Pep. 12.5 pg/mL (0-125)
[2022-08-30 11:16] LABS: Coronavirus 19, PCR Not Detected (NotDetected); Influenza A, PCR Not Detected (NotDetected); Influenza B, PCR Not Detected (NotDetected)
[2022-08-30 11:16] LABS: Troponin I < 0.01 ng/ml (0.00-0.034)
--- NOTE | 2022-08-30 12:25 | PC.NURSE ---
Dr Harris speaking with transfer center after [facility] results obtained
--- NOTE | 2022-08-30 13:07 | PC.NURSE ---
pt took her own blood sugar and also administered 1 unit of insulin, fsbs 137 mg/dl
--- NOTE | 2022-08-30 14:29 | PC.NURSE ---
lab at the bedside to collect
--- NOTE | 2022-08-30 14:35 | PC.NURSE ---
Updated pt about conversation with [facility] over bed status and POC. Pt was agreeable at this time. Provided pt with warm blanket. No other needs at this time
[2022-08-30 15:05] LABS: Troponin I < 0.01 ng/ml (0.00-0.034)
--- NOTE | 2022-08-30 15:48 | PC.NURSE ---
Addendum entered by Kathy Reyes RN 08/30/22 15:49: Called dietary for snack for patient Original Note: Rounded on pt at this time. Resting in bed no new needs
--- NOTE | 2022-08-30 17:13 | PC.NURSE ---
placed call to [facility] for bed placement update, cleaning the room should call soon.
--- NOTE | 2022-08-30 17:53 | PC.NURSE ---
rounded on pt at this time. no needs voiced. pt up to date on POC
--- NOTE | 2022-08-30 18:07 | PC.NURSE ---
called dietary for supper tray
--- NOTE | 2022-08-30 18:14 | PC.NURSE ---
[facility] called with bed assignment
--- NOTE | 2022-08-30 18:35 | PC.NURSE ---
called report to Debora at [facility]
--- NOTE | 2022-08-30 19:32 | PC.NURSE ---
Coni spoke with staff from the lung transplant unit and they gave verbal order for 2gram cefepime and 80mg soulmedrol as VO from Dr. Huerta who is the medical technical writer of the Lung transplant unit since it was still going to be a hour or so before pt left ED due to EMS [place]. Orders repeated and verified by Cnoi and reported to Dr. Harris who advised to enter the orders and medicate patient at this time.
--- NOTE | 2022-08-30 20:40 | PC.NURSE ---
Pt was receiving IV cefepime and her IV was not infusing due to position of the IV . Attempted to place another IV twice prior to [facility] arrival to transport patient. IV was unsuccessful in both the patients left hand and ac. [facility] is not able to transport patient with cefepime so infusion will need to be stopped and restarted when patient arrives at .Attempted to call nurse for room 112 at [phone]. Was advised that both nurse and charge nurse were unavailable to receive update but will return our call.
--- NOTE | 2022-08-30 20:46 | PC.NURSE ---
Spoke with Mehran at regarding cefepime. Per Mehran, she will have the cefepime reordered when the patient arrives at their facility.
== END 2022-08-30 21:01 | disposition other institution (70) ==
PROVIDERS: Emergency Provider Emergency Medicine; PCP Family Medicine
DX: R07.9 Chest pain, unspecified (principal); R06.02 Shortness of breath; Z20.822 Contact with and (suspected) exposure to COVID-19; M41.9 Scoliosis, unspecified; Z88.0 Allergy status to penicillin; Z88.1 Allergy status to other antibiotic agents; Z88.3 Allergy status to other anti-infective agents; Z88.8 Allergy status to other drugs, medicaments and biological substances; Z94.0 Kidney transplant status
CPT/HCPCS: 71045; 80053; 83880; 84484; 85025; 93005; 96374; 99284; C9803; U0003; U0005

== ENCOUNTER → 2023-05-10 10:39 | Outpatient (CLI) | payer MEDICARE, OTHER, SELFPAY ==
--- NOTE | 2023-05-10 10:48 | US_ITS ---
PROCEDURE: US TRANSVAGINAL CLINICAL INDICATION: Heavy menstrual bleeding COMPARISON: No exams were available for comparison FINDINGS: Transvaginal sonographic images of the pelvis were obtained. UTERUS: 7.3 cm x 3.5 cmx 3.9 cm with a combined endometrial thickness of 7.4mm. LEFT OVARY: 8lpm4nak4.5cm with a volume of 3.8ml.There are several small follicles. There is a dominant follicle measuring 1.3 cm x 0.8 cm x 1.1 cm. There is a vessel overlying the follicle. RIGHT OVARY: 4cmx [id number] with a volume of 6.2ml. There are 2 follicles in the right ovary measuring 1.2 cm and 1.6 cm. Both ovaries are seen and appear normal. Doppler flow to both ovaries are seen. There is no fluid in the cul-de-sac. IMPRESSION: 1. Anteverted uterus normal in shape and size. The endometrium is 7.4 mm. 2. Both ovaries are seen and appear normal. There are follicles on both ovaries. 3. No fluid in the cul-de-sac. Dictated by: Piotr Gtz MD 05/10/2023 14:54 Piotr Gtz MD in [facility] 05/10/2023 14:54
== END ==
PROVIDERS: PCP Family Medicine; Visit Provider Obstetrics & Gynecology
DX: N93.9 Abnormal uterine and vaginal bleeding, unspecified (principal)
CPT/HCPCS: 76830

== ENCOUNTER 2025-01-24 14:17 | Emergency (ER) | payer MEDICARE, OTHER, SELFPAY ==
[2025-01-24 14:24] VITALS: BP 138/107; PULSE 98; RESP 18; TEMP 36.7; O2SAT 99; BMI 25.7
[2025-01-24 14:30] VITALS: BP 139/90; PULSE 92; O2SAT 100
--- NOTE | 2025-01-24 14:36 | CT_ITS ---
FINAL REPORT CLINICAL HISTORY: scoliosis, lumbar radicular pain L3-5 COMPARISON: None FINDINGS: CT LUMBAR SPINE TECHNIQUE: Thin section axial CT with sagittal and coronal reconstructions This study was performed with techniques to keep radiation doses as low as reasonably achievable, (ALARA). Individualized dose reduction techniques using automated exposure control or adjustment of mA and/or kV according to the patient''s size were employed. FINDINGS: No fracture is present. There is severe dextroscoliosis measuring up to 72 degrees. Surgical changes from spinal fixation are noted. There is lateral subluxation at multiple levels. Situs inversus is present. There is no evidence of bony canal stenosis or neural foraminal narrowing. IMPRESSION: Advanced scoliosis. No bony canal stenosis or obvious neural foraminal narrowing. Reviewed, Interpreted and Dictated by Breana Leonardo MD Transcribed by Shae Heard Authenticated and [facility]
--- NOTE | 2025-01-24 14:39 | [facility].EDGENADL ---
Discharge Plan Disposition Patient Disposition: Home, Self-Care Chief Complaint: Back Pain/Injury Prescriptions Prescriptions: No Action lamotrigine 25 mg tablet 25 mg PO clonazepam 0.5 mg tablet 0.5 mg PO Patient Comments: TAKE 1 TABLET BY MOUTH AT BEDTIME fluconazole 150 mg tablet 150 mg PO Patient Comments: TAKE 1 TABLET BY MOUTH EVERY 7 DAYS levetiracetam 1,000 mg tablet 1,000 mg PO levetiracetam 250 mg tablet 250 mg PO metoprolol tartrate 25 mg tablet 25 mg PO Patient Comments: TAKE 1 TABLET BY MOUTH TWICE DAILY omeprazole 20 mg capsule,delayed release(DR/EC) 20 mg PO Patient Comments: TAKE ONE CAPSULE BY MOUTH TWICE DAILY atorvastatin 20 mg tablet 20 mg PO Patient Comments: TAKE 1 TABLET BY MOUTH EVERY DAY acyclovir 400 mg tablet 400 mg PO Patient Comments: TAKE 1 TABLET BY MOUTH TWICE DAILY multivitamin [Daily Multi-Vitamin] Tablet 1 tab PO DAILY ascorbate calcium (vitamin C) 500 mg tablet 500 mg PO DAILY biotin 10 mg tablet 20 mg PO DAILY tacrolimus 1 mg capsule 2 mg PO Patient Comments: TAKE 2 CAPSULES BY MOUTH EVERY MORNING AND 1 CAPSULE IN EVENING sulfamethoxazole-trimethoprim 400-80 mg tablet 1 tab PO DAILY azithromycin 250 mg tablet 250 mg PO DAILY budesonide 0.5 mg/2 mL suspension for nebulization 0.5 mg inhalation DAILY ipratropium-albuterol 0.5 mg-3 mg(2.5 mg base)/3 mL solution for nebulization 3 ml inhalation Q4-6H PRN magnesium oxide 400 mg magnesium capsule 400 mg PO DAILY [id number] Capsule PO loperamide 2 mg tablet 2 mg PO Q6H PRN Novolin N NPH U-100 Insulin 100 unit/mL suspension 100 unit SQ cetirizine 10 mg tablet 10 mg PO Patient Comments: TAKE 1 TABLET BY MOUTH EVERY NIGHT prednisone 10 mg tablet 10 mg PO DAILY apixaban 5 mg tablet 5 mg PO BID fluticasone propion-salmeterol [Advair Diskus] 250-50 mcg/dose blister with device inhalation fluorouracil 5 % cream topical Patient Comments: APPLY TWICE DAILY TO AFFECTED AREA ON RIGHT JAINISM FOR 6 WEEKS THEN STOP Referrals Follow up/Referrals: Denisha Rojas MD [Primary Care Provider] - See instructions Terrell Sanchez MD [Staff Physician] - See instructions Activity Restrictions/Add. Instructions Additional Instructions/Restrictions: Call your family doctor to establish care for this visit to the emergency department and schedule follow-up within 48 hours to ensure improvement. If you have any worsening of your condition or any other concerning signs or symptoms, return to the emergency department or your primary care doctor for further evaluation. Take Tylenol for symptomatic management. If you have not already, talk to Dr. Sanchez about chronic back pain management, he may be able to help with your symptoms. Clinical Impressions Clinical Impression: Back pain, lumbosacral Instructions Patient Instructions: DI for Low Back Pain Print Language Print Language: Persian Discharge ED Provider: Jamal Su General Adult HPI <Zach Dean MD - Last Filed: 01/24/25 15:19> General Chief complaint: Back Pain/Injury Stated complaint: back pain-no accident Time Seen by Provider: 01/24/25 14:24 Mode of Arrival: Ambulatory Source of Information: Patient Description of Symptoms (Recalled from ER Triage Doc. by RN): pt presents to ED c/o right lower back pain that radiates into her right leg. pt denies any urinary symptoms. pt states s/s started after lifting her dog. History of Present Illness HPI narrative: Patient is a 39-year-old female with past medical history of Kartagener syndrome status post multiple transplants, chronic back pain and scoliosis status post total spinal fusion who presents emergency department for evaluation of back pain. Onset was acute over the last 3 to 4 days she was tugged on by her dog and had right-sided back pain radiating down to her knee, it intermittently causes severe pain and is worse with bending. She did not actually fall and resultant trauma, no other acute complaints at this time. Please note that above description of symptoms, in this electronic medical record under categorization of recalled from ER triage doctor by RN are reflective of an initial nursing assessment, however, is not reflective of my full history and physical exam that was personally taken and clarified. Consequentially, this preceding description of symptoms, which may include the patient's categorized chief complaint in the EMR, do not reflect my personal clinical impression, and the ultimate description of history of present illness and patient stated complaints should be deferred to this section of the note. Unless stated otherwise or congruent with this section of the note, additional signs, symptoms, or incongruence should be interpreted as inaccurate with my clinical impression. Related Data Home Medications ?Medication ?Instructions ?Recorded ?Confirmed acyclovir 400 mg tablet 400 mg PO 04/15/21 04/25/23 ascorbate calcium (vitamin C) 500 500 mg PO DAILY 04/15/21 04/25/23 mg tablet atorvastatin 20 mg tablet 20 mg PO 04/15/21 04/25/23 biotin 10 mg tablet 20 mg PO DAILY 04/15/21 04/25/23 clonazepam 0.5 mg tablet 0.5 mg PO 04/15/21 04/25/23 fluconazole 150 mg tablet 150 mg PO 04/15/21 04/25/23 lamotrigine 25 mg tablet 25 mg PO 04/15/21 04/25/23 levetiracetam 1,000 mg tablet 1,000 mg PO 04/15/21 04/25/23 levetiracetam 250 mg tablet 250 mg PO 04/15/21 04/25/23 metoprolol tartrate 25 mg tablet 25 mg PO 04/15/21 04/25/23 multivitamin (Daily Multi-Vitamin 1 tab PO DAILY 04/15/21 04/25/23 tablet) omeprazole 20 mg capsule,delayed 20 mg PO 04/15/21 04/25/23 release azithromycin 250 mg tablet 250 mg PO DAILY 05/22/21 04/25/23 sulfamethoxazole 400 1 tab PO DAILY 05/22/21 04/25/23 mg-trimethoprim 80 mg tablet apixaban 5 mg tablet 5 mg PO BID 04/25/23 04/25/23 budesonide 0.5 mg/2 mL suspension 0.5 mg inhalation DAILY 04/25/23 04/25/23 for nebulization cetirizine 10 mg tablet 10 mg PO 04/25/23 04/25/23 fluorouracil 5 % topical cream applic topical 04/25/23 04/25/23 fluticasone 250 mcg-salmeterol 50 inhalation 04/25/23 04/25/23 mcg/dose blistr powdr for inhalation (Advair Diskus) qiqjhob-ubpywve-zkuvtprttn capsule cap PO 04/25/23 04/25/23 insulin NPH isoph U-100 human 100 100 unit SQ 04/25/23 04/25/23 unit/mL subcutaneous suspension (Novolin N NPH U-100 Insulin isophane) ipratropium 0.5 mg-albuterol 3 mg 3 ml inhalation Q4-6H PRN 04/25/23 04/25/23 (2.5 mg base)/3 mL nebulization soln loperamide 2 mg tablet 2 mg PO Q6H PRN 04/25/23 04/25/23 magnesium oxide 400 mg PO DAILY 04/25/23 04/25/23 prednisone 10 mg tablet 10 mg PO DAILY 04/25/23 04/25/23 tacrolimus 1 mg capsule, 2 mg PO 04/25/23 04/25/23 immediate-release Allergies Allergy/AdvReac Type Severity Reaction Status Date / Time niacin Allergy Mild Verified 04/25/23 10:14 amoxicillin Allergy Verified 04/25/23 10:14 [facility] <Zach Dean MD - Last Filed: 01/24/25 15:19> [facility] Disclaimer: The information contained in this section may have been updated after the patient was seen, as this information can be updated by other users. 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 Hx of right mastectomy History of back surgery Kidney transplant recipient Heart-lung transplant recipient Family History (Updated 04/25/23 @ 10:18 by MARCIAL Castanon) Other Cancer Social History Smoking Status: Never smoker alcohol intake: never substance use type: denies use current occupational status: other Travel in the last 8 weeks: None Have you lived/traveled outside [place] in past 30 days?: No Contact w/someone who lives/traveled outside US past 30 days?: No Exposure to someone with infectious disease in past 14 days?: No Do you have a fever (greater than 100.4 F or 38 C)?: No Have you tested positive for COVID-19: No Exposed to someone with COVID-19 in past 14 days?: No Do you have a sore throat?: No Do you have a cough?: No Do you have any weakness?: No Do you have any diarrhea?: No Are you experiencing any unusual bleeding?: No Do you have any muscle aches/pain?: Yes Do you have any abdominal pain?: No Are you experiencing loss of taste or smell?: No Other Medical History Have you received the Flu Vaccine for this season: Yes Have you received the Pneumonia Vaccine: Yes <Zach Dean MD - Last Filed: 01/24/25 15:19> ROS Obtained: Yes Systems reviewed as appropriate & no additional complaints except as documented Physical Exam <Zach Dean MD - Last Filed: 01/24/25 15:19> General General appearance: alert and in no apparent distress Head Head exam: atraumatic and normocephalic Eye Eye exam: Present PERRL and EOMI ENT ENT exam: Present mucous membranes moist Neck Neck exam: Present normal inspection Chest Chest inspection: Present normal inspection and symmetric chest wall rise Respiratory Respiratory exam: Present normal lung sounds bilaterally; Absent respiratory distress Cardiovascular Cardiovascular exam: Present regular rate and normal rhythm Abdominal Exam Abdominal exam: Present soft; Absent tenderness Extremities Exam Extremities exam: Present normal inspection and other (Extension of the leg against resistance reproduces radicular pain from the back down to the knee) Back Exam Back exam: Present other (Well-healed midline surgical scar, paraspinal lumbar tenderness on the right.) Neurological Exam Neurological exam: Present alert and CN II-XII intact Psychiatric Psychiatric exam: Present normal affect Skin Skin exam: Present warm and dry Medical Decision Making <Zach Dean MD - Last Filed: 01/24/25 15:19> Medical Records Screening: Per USPSTF and CDC recommendations, given the prevalence of disease in our region, it is our hospital?s policy to screen for HIV and viral Hepatitis for all patients aged 18 and over and those with ongoing risk factors. Foster Inquiry Pt receiving controlled substance: No Vital Signs: 01/24/25 14:24 01/24/25 14:30 Temperature 98.1 F Temperature Source Oral Pulse Rate 92 H Pulse Rate [Right Radial] 98 H Respiratory Rate 18 Blood Pressure 139/90 Blood Pressure [Left Arm] 138/107 H Blood Pressure Mean 108 Blood Pressure Mean [Left Arm] 117 Blood Pressure Source [Left Arm] Automatic Cuff Blood Pressure Position [Left Arm] Sitting 02 Sat by Pulse Oximetry 99 100 Oxygen Delivery Method Room Air Orders (Tests/Meds): ED MEDICATIONS Discontinued Medications Generic Name Dose Route Start Last Admin Trade Name Freq PRN Reason Stop Dose Admin Acetaminophen 1,000 mg 01/24/25 14:36 01/24/25 15:20 Acetaminophen 1,000mg/100ml Vial IV 01/24/25 14:37 Not Given ONCE ONE Acetaminophen 1,000 mg 01/24/25 15:15 01/24/25 15:21 Acetaminophen 500mg Tab PO 01/24/25 15:16 1,000 mg ONCE ONE Administration Methocarbamol 1,000 mg 01/24/25 14:37 01/24/25 14:56 Methocarbamol 500mg Tablet PO 01/24/25 14:38 1,000 mg ONCE ONE Administration Methylprednisolone Sodium Succinate 60 mg 01/24/25 14:36 01/24/25 15:20 Methylprednisolone Sod Succ 125mg Vial IV 01/24/25 14:37 Not Given ONCE ONE Methylprednisolone Sodium Succinate 60 mg 01/24/25 15:15 01/24/25 15:21 Methylprednisolone Sod Succ 125mg Vial IM 01/24/25 15:16 60 mg ONCE ONE Administration ORDERS Category Date Time Status CT lumbar spine wo con Stat Cat Scan 01/24/25 14:36 Completed Medical Decision Narrative: In summary patient is a 39-year-old female with past medical history described above who presents emergency department for evaluation of back pain in the setting of osteoporosis, Kartagener syndrome, scoliosis status post surgical intervention. Patient is hemodynamically stable nontoxic-appearing upon arrival, afebrile. Patient has radicular back pain and I suspect it is nonspecific in the setting of multiple pulled muscles with likely nerve impingement however screening for hardware failure and fracture in the setting of osteoporosis and surgical invention will be conducted with noncontrasted CT scan of the lumbar spine. Initial inventions include multimodal pain control, NSAIDs will not be administered given her history of renal transplant. CT imaging and repeat evaluation pending at time of transition to the oncoming physician, Dr. Su. <Jamal Su MD - Last Filed: 01/24/25 16:05> Vital Signs: 01/24/25 14:24 01/24/25 14:30 Temperature 98.1 F Temperature Source Oral Pulse Rate 92 H Pulse Rate [Right Radial] 98 H Respiratory Rate 18 Blood Pressure 139/90 Blood Pressure [Left Arm] 138/107 H Blood Pressure Mean 108 Blood Pressure Mean [Left Arm] 117 Blood Pressure Source [Left Arm] Automatic Cuff Blood Pressure Position [Left Arm] Sitting 02 Sat by Pulse Oximetry 99 100 Oxygen Delivery Method Room Air Orders (Tests/Meds): ED MEDICATIONS Discontinued Medications Generic Name Dose Route Start Last Admin Trade Name Pema PRN Reason Stop Dose Admin Acetaminophen 1,000 mg 01/24/25 14:36 01/24/25 15:20 Acetaminophen 1,000mg/100ml Vial IV 01/24/25 14:37 Not Given ONCE ONE Acetaminophen 1,000 mg 01/24/25 15:15 01/24/25 15:21 Acetaminophen 500mg Tab PO 01/24/25 15:16 1,000 mg ONCE ONE Administration Methocarbamol 1,000 mg 01/24/25 14:37 01/24/25 14:56 Methocarbamol 500mg Tablet PO 01/24/25 14:38 1,000 mg ONCE ONE Administration Methylprednisolone Sodium Succinate 60 mg 01/24/25 14:36 01/24/25 15:20 Methylprednisolone Sod Succ 125mg Vial IV 01/24/25 14:37 Not Given ONCE ONE Methylprednisolone Sodium Succinate 60 mg 01/24/25 15:15 01/24/25 15:21 Methylprednisolone Sod Succ 125mg Vial IM 01/24/25 15:16 60 mg ONCE ONE Administration ORDERS Category Date Time Status CT lumbar spine wo con Stat Cat Scan 01/24/25 14:36 Completed Medical Decision Narrative: In summary patient is a 39-year-old female with past medical history described above who presents emergency department for evaluation of back pain in the setting of osteoporosis, Kartagener syndrome, scoliosis status post surgical intervention. Patient is hemodynamically stable nontoxic-appearing upon arrival, afebrile. Patient has radicular back pain and I suspect it is nonspecific in the setting of multiple pulled muscles with likely nerve impingement however screening for hardware failure and fracture in the setting of osteoporosis and surgical invention will be conducted with noncontrasted CT scan of the lumbar spine. Initial inventions include multimodal pain control, NSAIDs will not be administered given her history of renal transplant. CT imaging and repeat evaluation pending at time of transition to the oncoming physician, Dr. Su. Georges: I assumed primary responsibility for this patient after signout from previous physician. On my evaluation, patient states she is feeling better, she is requesting to leave. I independently interpreted her CT scan, no acute abnormalities. Because patient at baseline without signs or symptoms of clinical decompensation, deemed appropriate for discharge. Results were relayed to patient who voiced understanding and were agreeable to outpatient management and follow up. I discussed my clinical impression with patient and answered all questions. At this time, the evidence for any other entities in the differential is insufficient to warrant any further testing or ED observation. This was explained as well. Advisory was given that persistent or worsening symptoms require further evaluation. I confirmed the understanding of this discussion. Critical Care <Zach Dean MD - Last Filed: 01/24/25 15:19> Critical Care Time Critical Care Time: No
[2025-01-24] MEDS: METHOCARBAMOL 500MG TABLET 1000 MG PO (14:56)
[2025-01-24] MEDS: ACETAMINOPHEN 500MG TAB 1000 MG PO (15:21)
[2025-01-24] MEDS: METHYLPREDNISOLONE SOD SUCC 125MG VIAL 60 MG IM (15:21)
[2025-01-24 16:11] VITALS: BP 139/90; PULSE 85; RESP 18; TEMP 36.7; O2SAT 100
== END 2025-01-24 16:23 | disposition home or self-care (01) ==
PROVIDERS: Emergency Provider Emergency Medicine; PCP Family Medicine
DX: M54.50 Low back pain, unspecified (principal)
CPT/HCPCS: 72131; 96361; 96374; 96375; 99284; J0131; J2919